=== PATIENT | female | born 1980 | race Caucasian/White ===

== ENCOUNTER 2020-02-22 17:21 | Outpatient (REF) | payer MEDICAID, SELFPAY | END 2020-02-22 17:22 | disposition home or self-care (01) | LOC: HO.LAB 17:21 | PROVIDERS: PCP Family Medicine; Visit Provider Internal Medicine | DX: Z20.828 Contact with and (suspected) exposure to other viral communicable diseases (principal) | CPT/HCPCS: 87635 ==

== ENCOUNTER 2024-09-11 14:11 | Emergency (ER) | payer OTHER, SELFPAY ==
[2024-09-11 14:16] VITALS: BP 178/88; PULSE 90; RESP 14; TEMP 36.8; O2SAT 100; BMI 28.5
--- NOTE | 2024-09-11 14:32 | ED_ITS ---
HPI - General Adult General Chief complaint: Animal Bite Stated complaint: cat bite Time Seen by Provider: 09/11/24 14:31 Source: patient Mode of arrival: ambulatory Limitations: no limitations History of Present Illness ED Provider: Christin Recio PA-C HPI narrative: Patient is a 44 year old female with no reported medical history presenting to the emergency department today with forehead scratches / bites. Patient states that yesterday she was bit by her cat on her forehead. Patient states that the cat is up to date on all vaccinations. Patient denies any dizziness, lightheadedness, abdominal pain, nausea, vomiting, fever, chills, blurry vision, double vision, loss of vision, chest pain, difficulty breathing, shortness of breath, back pain, night sweats, pain with urination, increased urinary frequency, increased urinary urgency, blood in her urine or stool, syncope or a near syncopal episode, bowel incontinence, bladder incontinence, or any other complaints at this time. Relieving factors: none Exacerbating factors: none Associated symptoms: denies other symptoms Treatments prior to arrival: none Related Data Previous Rx's ?Medication ?Instructions ?Recorded amoxicillin 875 mg tablet 875 mg PO BID 5 days #10 tabs 09/11/24 Allergies Allergy/AdvReac Type Severity Reaction Status Date / Time No Known Allergies Allergy Verified 09/11/24 14:18 Review of Systems Constitutional: Constitutional: Reports no additional constitutional complaints, Denies chills, Denies fever(s) and Denies night sweats Eyes: Eyes: Reports no additional eye complaints, Denies blurry vision, Denies change in vision, Denies diplopia, Denies eye discharge, Denies loss of vision and Denies eye pain ENT: Denies dizziness Cardiovascular: Cardiovascular: Reports no additional cardiovascular complaints, Denies chest pain, Denies lightheadedness, Denies Loss of Consciousness and Denies dyspnea Respiratory: Respiratory: Reports no additional respiratory complaints and Denies dyspnea Gastrointestinal: Gastrointestinal: Reports no additional gastrointestinal complaints, Denies abdominal pain, Denies melena, Denies hematochezia, Denies change in bowel habits and Denies change in stool character Genitourinary: Genitourinary: Denies hematuria, Denies urinary frequency, Denies dysuria, Denies urinary incontinence, Denies urinary hesitancy and Denies urinary urgency Musculoskeletal: Musculoskeletal: Reports no additional musculoskeletal complaints, Denies numbness and Denies tingling Comments: forehead scratch Neurologic: Denies dizziness, Denies loss of vision, Denies numbness and Denies tingling Psychiatric: Psychiatric: Reports no additional psychiatric complaints Endocrine: Endocrine: Reports no additional endocrine complaints Hematologic/Lymphatic: Hematologic/Lymphatic: Reports no additional hematologic/lymphatic complaints Allergic/Immunologic: Allergic/Immunologic: Reports no additional allergic/immunologic complaints PMFSH Past Medical History Attestation statement: The following information was validated with the patient. Source: old records reviewed and nursing notes reviewed Social History Social History Advance Directives: No Advance Directives Information Provided: No Do you have a plan to hurt others: No Plan Physical Exam ED Vital Signs: Vital Signs - 24 hr 09/11/24 14:16 09/11/24 15:23 Temperature 98.2 F 98.2 F Pulse Rate 90 90 Respiratory Rate 14 14 Blood Pressure 178/88 H 160/80 H Pulse Oximetry 100 100 Oxygen Delivery Method Room Air Room Air BMI result Body Mass Index 28.5 Const General: cooperative, no acute distress, alert and awake Nutritional Appearance: well nourished Orientation/consciousness: patient oriented x3 HENMT Other: multiple scratches / bite gregg to the forehead with surrounding erythema and warmth Ears: hearing grossly normal bilaterally and external ears normal General nose exam: Normal external nose present, no nasal discharge noted and no epistaxis Mouth: Normal oral and palatal mucosa present, no drooling and no muffled voice Eyes General: appearance normal, both eyes and all related structures Periorbital: periorbital findings normal Eyelids: Yes eyelids normal Conjunctivae: conjunctivae normal Pupils: Equal, round and reactive pupils present EOM: EOMs intact bilaterally Neck Neck: Yes normal visual inspection, Yes full ROM and Yes no lymphadenopathy Resp Effort & Inspection: normal respiratory effort and able to speak in complete sentences Neuro General: patient oriented x3, moves all extremities and CN's II-XI intact bilaterally Cranial nerves: Yes Equal, round and reactive pupils present Cognition (Neuro): normal cognition Extrem General: Yes normal to inspection, Yes full ROM and Yes capillary refill normal Psych Appearance: grossly normal Mental Status: mental status grossly normal Affect: normal affect Attitude: cooperative Thought process: Normal thought process present Thought content: Normal thought content present Insight: Good insight present (Psych) Medications Administered Discontinued Medications Generic Name Dose Route Start Last Admin Trade Name Compa PRN Reason Stop Dose Admin Amoxicillin/Clavulanate Potassium 875 mg 09/11/24 14:43 09/11/24 15:23 Amoxicillin/Potassium Clav 875 Mg Tablet PO 09/11/24 14:44 875 mg ONCE ONE Administration Medical Decision Making Medical Decision Making MDM Narrative: Patient is a 44 year old female with no reported medical history presenting to the emergency department today with forehead scratches / bites. Patient's physical exam was as noted in the physical exam portion of this note. I explained my physical exam findings to the patient. I answered all questions asked by the patient. Patient's clinical presentation is most consistent with a cat scratch / cat bite / and cellulitis of the wounds. Patient confirmed she is up to date on her tetanus status and again that her cat is up to date on all vaccinations. I stressed the importance of the patient taking her medication as directed (either prescribed or as the over the counter packaging recommends). I stressed the importance of the patient following up with her primary care provider. I stressed the importance of the patient returning to the emergency department immediately if her symptoms were to worsen or if she were to develop any dizziness, shortness of breath, difficulty breathing, chest pain, blurry vision, loss of vision, nausea, vomiting, abdominal pain, fever, chills, back pain, or any other complaints. Patient verbalized agreement and understanding with this treatment plan and discharge. Differential Diagnosis Differential Diagnoses: The differential diagnosis associated with the presentation includes Cat scratch Cat bite Cellulitis Admission/Observation Consideration of admission/observation: Escalation of care including admission/observation considered Patient would have been admitted to the hospital had her clinical presentation warranted hospital admission. Prescription Management I considered prescription management with: Antibiotic (patient prescribed an antibiotic for her cellulitis secondary to cat bite / scratches) Discharge Plan Discharge Clinical Impression: Cat bite, Cat scratch, Cellulitis Patient Disposition: Home, Self-Care Instructions: Animal Bite (ED), Cellulitis (ED) Additional Instructions: Take your antibiotic as prescribed. [place] el antibi?nancy jamey y remberto se lo ny recetado. Follow up with your primary care provider. Return to the emergency department immediately if your symptoms worsen or if you develop any dizziness, shortness of breath, difficulty breathing, chest pain, blurry vision, loss of vision, nausea, vomiting, abdominal pain, fever, chills, back pain, or any other complaints. Darlene?seguimiento?con umaña m?dico de atenci?n primaria. Acuda inmediatamente al servicio de urgencias si libby s?ntomas empeoran o si presenta falta de aliento, dificultad para respirar, dolor tor?cico, mareos, aturdimiento, dolor de espalda, dolor abdominal, fiebre, escalofr?os o cualquier otro s?ntoma. Please see the information below about our Patient Portal. If you are not yet enrolled in the [facility] Patient Portal, you will receive an enrollment email invitation following your visit to any [facility] [place] [place] care setting. You may also self-enroll in the Patient Portal by visiting our website: [email or web address] The following information is required to access the Patient Portal: - Your [facility] Medical Record Number - Your personal home email address (must match what is in your electronic medical record, Registration staff can assist with this) - Name - Date of Capabilities of the Patient Portal: - Message some providers - View upcoming appointments - Access your health summary, medical history, and visit history - View current conditions and allergies - View procedure and lab results - View your medications, including guidelines, side effects, and precautions - Complete pre-appointment questionnaires requested by your provider - Ready summary reports of your office visits and procedures To access the Patient Portal Mobile [place], follow these directions: - Search [employer] in the [employer] Store or [employer] Store - Download the [place] - Search for [facility] - Enter your login/password Portal del paciente Si usted no esta inscrito en el portal de pacientes de [facility] y [facility], recibira july invitacion de inscripcion despues de umaña visita al [facility] o al [facility] [place] via correo electronico. Tambien puede inscribirse voluntariamente en el portal de pacientes visitando nuestra pagina web: [email or web address] La siguiente informacion sera requerida para acceder al portal: - Umaña sonia de historia medica de [facility] - Umaña direccion de correo electronico personal - Nombre - Fecha de nacimiento Capacidades: Las siguientes capacidades estan disponibles en el portal de pacientes: - Enviar mensajes a algunos doctores - Verificar proximas citas - Acceso a umaña historial de abraham, registro medico e historial de visitas - [place] las condiciones actuales y alergias clayton procedimientos y resultados del laboratorio - [place] libby medicamentos, incluyendo las pautas - Efectos secundarios y precauciones - Completar o llenar formularios / cuestionarios de - Citas solicitadas por umaña doctor - Leer los resumenes de reportes medicos de libby visitas y procedimientos Clio acceder a la aplicacion movil: - [employer]que [employer] [facility] en la [place] Store o [employer] Store - Descargue la aplicacion - [facility] - Ingrese umaña nombre de usuario / Contrasena Prescriptions: New amoxicillin 875 mg tablet 875 mg PO BID 5 Days Qty: 10 0RF Referrals: Oxana Marcano MD [Primary Care Provider] - Interventions: ED Discharge Assessment Last Done: 09/11/24 15:23 Discharge Date/Time: 09/11/24 15:24 Print Language: Greenlandic
[2024-09-11 15:23] VITALS: BP 160/80; PULSE 90; RESP 14; TEMP 36.8; O2SAT 100
[2024-09-11] MEDS: Amoxicillin/Potassium Clav 875 MG TABLET PO (15:23)
== END 2024-09-11 15:24 | disposition home or self-care (01) ==
PROVIDERS: Emergency Provider Emergency Medicine; PCP Internal Medicine
DX: S00.81XA Abrasion of other part of head, initial encounter (principal); L03.211 Cellulitis of face; R51.9 Headache, unspecified; W45.8XXA Other foreign body or object entering through skin, initial encounter; Y93.9 Activity, unspecified; Y92.9 Unspecified place or not applicable; Y99.8 Other external cause status
CPT/HCPCS: 99282; 99283